=== PATIENT | male | born 1985 | race Caucasian/White ===

== ENCOUNTER 2021-08-25 15:53 | Emergency (ER) | payer OTHER ==
[~2021-08-25] VITALS: Ht 175.3 cm; Wt 72.1 kg
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
[2021-08-25] MEDS ORDERED: IV NS 0.9% 1,000 ML BAG IV ONE (17:00)
--- NOTE | 2021-08-25 17:13 | NUR ---
IV CANNULA G18 INSERTED ON LEFT AC. BLOOD DRAWN AND SENT TO LAB.
--- NOTE | 2021-08-25 17:19 | NUR ---
URINE SPECIMEN SENT TO LAB
--- NOTE | 2021-08-25 17:20 | NUR ---
PATIENT BROUGHT TO CT DEPARTMENT.
[2021-08-25 17:47] LABS: CREATINE KINASE, TOTAL 394 U/L (39-308)
[2021-08-25 17:48] LABS: ALANINE AMINOTRANSFERASE 62 U/L (12-78); ALBUMIN 3.7 g/dL (3.4-5.0); ALKALINE PHOSPHATASE 83 U/L (46-116); ASPARTATE AMINOTRANSFERASE 58 U/L (15-37); BILIRUBIN,DIRECT 0.2 mg/dL (0.0-0.2); BILIRUBIN,TOTAL 0.5 mg/dL (0.2-1.0); CARBON DIOXIDE 24 mmol/L (21-32); CHLORIDE 102 mmol/L (98-107); CREATININE 1.3 mg/dL (0.6-1.3); GLUCOSE 87 mg/dL (74-106); POTASSIUM 3.5 mmol/L (3.5-5.1); SODIUM SERUM 140 mmol/L (136-145); UREA NITROGEN, BLOOD 16 mg/dL (7-18)
[2021-08-25 17:49] LABS: ACETAMINOPHEN < 0 ug/ml (10-30); ALCOHOL, BLOOD < 3 mg/dL (0-0)
[2021-08-25 17:52] LABS: BASOPHILS # (AUTO) 0.1 K/uL (0.0-0.2); BASOPHILS % (AUTO) 0.5 % (0.0-2.0); EOSINOPHILS % (AUTO) 1.8 % (0.0-6.0); HEMATOCRIT 39 % (39-51); HEMOGLOBIN 12.6 g/dL (13.5-17.5); LYMPHOCYTES # (AUTO) 1.2 K/uL (0.8-4.8); LYMPHOCYTES % (AUTO) 8.6 % (20.0-44.0); MEAN CORPUSCULAR HGB CONC 33 g/dl (31.0-36.0); MEAN CORPUSCULAR VOLUME 88 fL (80-96); MONOCYTES # (AUTO) 0.7 K/uL (0.1-1.30); MONOCYTES % (AUTO) 5.2 % (2.0-12.0); NEUTROPHILS # (AUTO) 11.3 K/uL (1.8-8.9); NEUTROPHILS % (AUTO) 83.9 % (43.0-81.0); PLATELET COUNT (AUTO) 324 K/uL (150-450); WHITE BLOOD COUNT (AUTO) 13.4 K/uL (4.3-11.0)
[2021-08-25 18:23] LABS: BILIRUBIN,URINE NEGATIVE (NEGATIVE); COLOR,URINE YELLOW (YELLOW); LEUKOCYTE ESTERASE ,URINE NEGATIVE (NEGATIVE); NITRITE, URINE NEGATIVE (NEGATIVE); PROTEIN,URINE 100 mg/dl (NEGATIVE); UGLUCOSE NEGATIVE (NEGATIVE); UROBILINOGEN,URINE >=8.0 EU/dL (0.2)
[2021-08-25 18:28] LABS: BACTERIA,URINE RARE /HPF (None Seen); MUCUS,URINE Few /LPF (None Seen); SPERM,URINE Few /HPF (None Seen); SQUAMOUS EPITHELIAL CELL,UR 0-2 /HPF (None Seen); WBC,URINE 0-2 /HPF (0-3)
--- NOTE | 2021-08-26 02:00 | NUR ---
PT ambulatory with a steady gait
[2021-08-26 02:42] VITALS: BP 127/73
--- NOTE | 2021-08-26 02:42 | NUR ---
Patient discharged to home in stable condition. Written and verbal after care instructions given. Patient verbalizes understanding of instruction.
--- NOTE | 2021-08-26 02:42 | NUR ---
IV removed. Catheter intact and site benign. Pressure and 4x4 applied to site. No bleeding noted.
== END 2021-08-26 02:43 | disposition home or self-care (01) ==
LOC: EDBD 15:57 → ER 15:57
DX: R41.82 Altered mental status, unspecified (principal); F14.229 Cocaine dependence with intoxication, unspecified
CPT/HCPCS: 36415; 70450; 71045; 72125; 80048; 80076; 80143; 80307; 80320; 81001; 82550; 82553; 85025; 96360; 99285; J7030; G0480

== ENCOUNTER 2021-12-21 16:41 | Emergency (ER) | payer OTHER ==
[~2021-12-21] VITALS: Ht 167.6 cm; Wt 65.8 kg
--- NOTE | 2021-12-21 16:53 | NUR ---
BILATERAL ARM SORE FROM INJECTING HIMSELF, SORES INITIALLY STARTED 1 MONTHS AGO AND HAVE GOTTEN WORSE. VITALS ARE WITHIN NORMAL LIMITS. AWAITING MD CASANOVA.
[2021-12-21] MEDS ORDERED: SULF1TAB48 PO (17:17)
--- NOTE | 2021-12-21 17:40 | NUR ---
Patient does not wish to proceed with medical care recommended by Dr. Hernandez. Patient given information related to possible complications, up to and including , which could occur as a result of leaving the hospital at this time. Patient verbalizes understanding of risks involved due to leaving against medical advice. Patient has signed AMA form. Patient discharged to home. Written and verbal after care instructions given. Antibiotic prescription given. Patient verbalizes understanding of instruction.
[2021-12-21 17:56] VITALS: BP 132/66
== END 2021-12-21 17:40 | disposition home or self-care (01) ==
LOC: ER 16:54
DX: L03.114 Cellulitis of left upper limb (principal); L03.113 Cellulitis of right upper limb; F17.200 Nicotine dependence, unspecified, uncomplicated; Z79.899 Other long term (current) drug therapy

== ENCOUNTER 2022-02-06 15:54 | Emergency (ER) | payer OTHER ==
[~2022-02-06] VITALS: Ht 167.6 cm; Wt 61.2 kg
[~2022-02-06 15:54] MED LIST: SULF1TAB48 PO
[2022-02-06 16:19] VITALS: BP 117/78
[2022-02-06] MEDS ORDERED: CEPH500C2 PO (16:34)
== END 2022-02-06 16:52 | disposition home or self-care (01) ==
LOC: ER 15:59
DX: S51.801D Unspecified open wound of right forearm, subsequent encounter (principal); S51.802D Unspecified open wound of left forearm, subsequent encounter; F17.200 Nicotine dependence, unspecified, uncomplicated; Z79.899 Other long term (current) drug therapy; X58.XXXD Exposure to other specified factors, subsequent encounter